=== PATIENT | male | born 1970 | race Caucasian/White ===

== ENCOUNTER 2016-11-22 00:45 | Day surgery (SDC) | payer OTHER ==
[2016-11-22] VITALS (10 sets, daily range): BP systolic 104–135; BP diastolic 53–94; PULSE 57–95; RESP 12–20; O2SAT 95–98
[~2016-11-22] VITALS: Ht 172.7 cm; Wt 72.7 kg
[~2016-11-22 00:45] MED LIST: NITR0.4T SL; PANT40TA3 PO
[2016-11-22] MEDS ORDERED: 0.9% Sodium Chloride 1,000 ML IV SCH ×2 (07:35→13:39)
[2016-11-22] MEDS ORDERED: Vancomycin Inj 1,000 MG in IV Premix 1 EACH IV ONE (07:35)
[2016-11-22] MEDS ORDERED: [UNRECOGNIZED DRUG - REMARK] PO (10:54)
[2016-11-22 10:55] LABS: BASOPHILS % (AUTO) 0.5 % (0-3); EOSINOPHILS % (AUTO) 4.8 % (0-5); Mean Corpuscular Hemoglobin 30.3 pg (27.0-35.0); Mean Corpuscular Volume 86.2 fL (81-100); NEUTROPHILS % (AUTO) 62.8 % (40-74); Platelet Count 185 bil/L (150-400)
[2016-11-22 11:12] LABS: INR 0.96 ratio
--- NOTE | 2016-11-22 11:12 | NUR ---
Admit Admitted to [facility] 8 about 1015. VSS. States chronic abd. pain 05/11 and tolerating. States doesn't take medications for it often and that he is holding his current medication for this procedure. Pt. calm and treating with position of comfort. Tele paced. IVs started and labs sent. Procedure and recovery reviewed and verbalizes understanding. Awaiting director geophysical laboratory.
[2016-11-22] MEDS ORDERED: 0.9% Sodium Chloride 250 ML ONE (11:48)
[2016-11-22] MEDS ORDERED: Bupivacaine-MPF 0.5% 30 mL Inj ONE (11:48)
[2016-11-22] MEDS ORDERED: Heparin 5,000 Units/500 mL NS Premix IV ONE (11:48)
[2016-11-22] MEDS ORDERED: Water for Injection 50 ML IV ONE (11:49)
[2016-11-22] MEDS ORDERED: Vancomycin 1,000 mg Inj ONE (11:49)
[2016-11-22] MEDS ORDERED: fentaNYL-PF 50 mCg/mL 2 mL Inj ONE ×2 (12:27→12:54)
[2016-11-22] MEDS ORDERED: Ondansetron 2 mg/mL 2 mL Inj IVPUSH PRN (13:40)
--- NOTE | 2016-11-22 14:12 | OP ---
[address] [address] OPERATIVE REPORT PATIENT: ADILIA MOLINA : 1970 MR#: [id number] ADMIT: 11/22/2016 JOB ID: [id number] DATE OF SURGERY: 11/22/2016 PREOPERATIVE DIAGNOSIS(ES): Pacemaker battery depletion. POSTOPERATIVE DIAGNOSIS(ES): Pacemaker battery depletion. PROCEDURE PERFORMED: Dual-chamber pacemaker generator replacement. SURGEON: Florencio Rees MD, electrophysiology attending. FORMATION FRACTURING OPERATOR: Kenneth Seals. IMPLANTED DEVICE: Medtronic Adapta pulse generator model ADDR01, serial #[id number]. EXPLANTED DEVICE: Medtronic Adapta pulse generator model ADDR01, serial #[id number]. CHRONIC DEVICES: 1. Medtronic 5524M, 53 cm, serial #[id number]. 2. RV lead Medtronic 5024M, 58 cm, serial #[id number]. ANESTHESIA: Bolus dosing of Versed and fentanyl was utilized for an appropriate level of sedation. INDICATION: The patient is a pleasant 46-year-old man with neurocardiogenic syncope whose dual-chamber pacemaker has reached ASTRID. After discussion of risks and benefits of generator replacement, he opted to proceed. PROCEDURAL DESCRIPTION: Following informed signed consent, the patient was taken to the EP laboratory in a fasting, nonsedated state, where he was prepped and draped in the usual sterile fashion. The left infraclavicular region was infiltrated with 40 cc of a 50/50 mixture of bupivacaine and lidocaine. Once adequate anesthesia had been achieved, a 3 cm incision was performed overlying the previous surgical scar. Dissection was carried down to the capsule, and it was evident that the generator was subpectoral in its position. The leads were prepectoral. Then, an extensive amount of manipulation was undertaken to free the generator loose, as well as the leads. The generator was ultimately released from its capsule, and the leads were disconnected. The leads were intact. The pocket was copiously irrigated with antibiotic solution. The two chronic leads were connected to a new pulse generator. The entire system was replaced into the capsule. The incision was closed with running layers of absorbable suture. Of note, a nonabsorbable suture was placed as a marker to reapproximate the pectoral muscle. The incisions were closed with running layers of absorbable suture. The wound was dressed with skin adhesive and a small dressing. At the end of the procedure, the needle, sponge and instrument counts were correct. COMPLICATIONS: None. ESTIMATED BLOOD LOSS: Negligible. DEVICE MEASURED DATA: 1. Right atrial lead: 425.6 mV, 642 ohms, 0.5 V at 0.4 msec. 2. RV lead: 425.6 mV, 547 ohms, 1 V at 0.4 msec. FINAL PROGRAM PARAMETERS: DDD 60-130 beats per minute. IMPRESSION: Successful dual-chamber pacemaker generator replacement. PLAN: 1. Recovery and discharge from the [facility]. 2. Doxycycline 100 mg p.o. daily x7 days. 3. Wound check in one week. 4. Follow up with Jesus Claire PA-C in six weeks. ATTENDING STATEMENT: Florencio Rees MD, electrophysiology attending, was present for and supervised/performed all aspects of this procedure.
[2016-11-22] MEDS ORDERED: DOXY100C43 PO (14:25)
--- NOTE | 2016-11-22 15:02 | NUR ---
Received Pt. 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 Returned about 1355. VSS. Dressing to W c/d/i. Ice pack Placed. States no incisional discomfort. Took po well but became nauseated after. [place] offered but refused. States this happens whenever he eats. C/O 4/10 back pain, relieving with change of position. C/O SAHNI. Comfort measures provided, dark and quiet. Offered med but refused. Stated he will, "just deal with it". Continue to monitor per orders.
--- NOTE | 2016-11-22 16:14 | NUR ---
Discharge VS and site remain stable. Off bedrest at 1600. Discharge instructions given, see sheets. Pt. verbalizes understanding. Prescriptions and pacemaker packet given. IVs discontinued intact. Discharged ambulatory with all belongings in no distress.
== END 2016-11-22 23:59 | disposition home or self-care (01) ==
LOC: SOUO 00:45
PROVIDERS: ATTEND Internal Medicine Cardiovascular Disease
DX: Z45.010 Encounter for checking and testing of cardiac pacemaker pulse generator [battery] (principal); R55 Syncope and collapse
CPT/HCPCS: 33228; 36415; 80048; 85025; 85610; 99152; 99153; C1785; J1644; J2250; J3010; J3370; J7050